=== PATIENT | female | born 1950 | race Caucasian/White ===

== ENCOUNTER → 2017-09-29 | Outpatient (CLI) | payer MEDICARE, OTHER | LOC: MC.RAD 08:58 | DX: Z12.31 Encounter for screening mammogram for malignant neoplasm of breast (principal) ==

== ENCOUNTER → 2019-10-11 | Outpatient (CLI) | payer MEDICARE, OTHER | LOC: MC.RAD 10:15 | DX: Z12.31 Encounter for screening mammogram for malignant neoplasm of breast (principal) ==

== ENCOUNTER → 2020-05-21 | Outpatient (CLI) | payer MEDICARE, OTHER | LOC: MC.RAD 08:26 | DX: N64.89 Other specified disorders of breast (principal); N64.59 Other signs and symptoms in breast ==

== ENCOUNTER → 2020-10-15 | Outpatient (CLI) | payer MEDICARE, OTHER | LOC: MC.RAD 07:45 | DX: Z12.31 Encounter for screening mammogram for malignant neoplasm of breast (principal); N63.20 Unspecified lump in the left breast, unspecified quadrant ==

== ENCOUNTER → 2021-03-21 | Outpatient (CLI) | payer MEDICARE, OTHER | LOC: MC.RAD 07:00 | DX: C50.912 Malignant neoplasm of unspecified site of left female breast (principal) | CPT/HCPCS: 25758; 30634; A4648 ==

== ENCOUNTER 2021-09-09 14:00 | Outpatient (RCR) | payer MEDICARE, OTHER | END 2021-10-01 | disposition home or self-care (01) | LOC: MKS.ESL.PT | DX: L02.213 Cutaneous abscess of chest wall (principal) ==

== ENCOUNTER 2022-01-08 13:53 | Outpatient (RCR) | payer MEDICARE, OTHER | END 2022-01-13 | disposition home or self-care (01) | LOC: MKS.ESL.PT | DX: I89.0 Lymphedema, not elsewhere classified (principal); Z80.3 Family history of malignant neoplasm of breast; Z90.12 Acquired absence of left breast and nipple ==

== ENCOUNTER 2022-02-03 08:30 | Outpatient (RCR) | payer MEDICARE, OTHER | END 2022-02-13 | disposition home or self-care (01) | LOC: WSPT | DX: L02.213 Cutaneous abscess of chest wall (principal); I89.0 Lymphedema, not elsewhere classified; Z85.3 Personal history of malignant neoplasm of breast; Z90.12 Acquired absence of left breast and nipple ==

== ENCOUNTER 2022-02-10 08:32 | Outpatient (RCR) | payer MEDICARE, OTHER | END 2022-02-13 | disposition still patient (30) | LOC: MKS.ESL.PT | DX: I89.0 Lymphedema, not elsewhere classified (principal); Z85.3 Personal history of malignant neoplasm of breast; Z90.12 Acquired absence of left breast and nipple ==

== ENCOUNTER 2022-06-04 08:37 | Outpatient (RCR) | payer MEDICARE, OTHER | END 2022-06-15 | disposition home or self-care (01) | LOC: WSPT | DX: I89.0 Lymphedema, not elsewhere classified (principal); Z85.3 Personal history of malignant neoplasm of breast; Z90.12 Acquired absence of left breast and nipple ==

== ENCOUNTER 2022-06-11 11:24 | Outpatient (RCR) | payer MEDICARE, OTHER | END 2022-06-15 | disposition home or self-care (01) | LOC: MKS.ESL.PT | DX: I89.0 Lymphedema, not elsewhere classified (principal); Z85.3 Personal history of malignant neoplasm of breast ==

== ENCOUNTER 2023-01-30 10:04 | Outpatient (RCR) | payer MEDICARE, OTHER | END 2023-02-13 | disposition home or self-care (01) | LOC: MKS.ESL.PT | DX: I89.0 Lymphedema, not elsewhere classified (principal) ==

== ENCOUNTER 2023-03-09 15:30 | Outpatient (RCR) | payer MEDICARE, OTHER | END 2023-03-15 | disposition home or self-care (01) | LOC: MKS.ESL.PT | DX: I89.0 Lymphedema, not elsewhere classified (principal); Z85.3 Personal history of malignant neoplasm of breast; Z90.12 Acquired absence of left breast and nipple ==

== ENCOUNTER 2023-07-17 10:30 | Outpatient (RCR) | payer MEDICARE, OTHER | END 2023-09-14 16:20 | LOC: MKS.ESL.PT 10:30 | DX: I89.0 Lymphedema, not elsewhere classified (principal); Z90.12 Acquired absence of left breast and nipple; Z85.3 Personal history of malignant neoplasm of breast ==